=== PATIENT | male | born 1960 | race Caucasian/White ===

== ENCOUNTER 2020-02-18 22:17 | Inpatient (IN) | payer MEDICAID ==
[~2020-02-18] VITALS: Ht 180.3 cm; Wt 98.4 kg
[2020-02-18] MEDS ORDERED: IV NS 1000 ML 1,000 ML IV ONE (22:45)
[2020-02-18 23:04] LABS: BASOPHILS # (AUTO) 0.1 K/uL (0.0-8.0); BASOPHILS % (AUTO) 0.8 % (0.0-2.0); EOSINOPHILS # (AUTO) 0.2 K/uL (0.0-0.7); EOSINOPHILS % (AUTO) 3.8 % (0.0-7.0); HEMATOCRIT 43.9 % (36.7-47.1); LYMPHOCYTES # (AUTO) 1.9 K/uL (20.0-40.0); LYMPHOCYTES % (AUTO) 28.8 % (20.5-51.5); MEAN CORPUSCULAR HGB CONC 34 g/dL (32.5-36.3); MEAN CORPUSCULAR VOLUME 102.5 fL (73.0-96.2); MONOCYTES # (AUTO) 0.7 K/uL (2.0-10.0); MONOCYTES % (AUTO) 10.7 % (0.0-11.0); NEUTROPHILS # (AUTO) 3.6 K/uL (1.8-8.9); NEUTROPHILS % (AUTO) 55.9 % (38.5-71.5); PLATELET COUNT (AUTO) 188 K/uL (152-348); RED BLOOD CELL COUNT(AUTO) 4.29 MIL/uL (4.06-5.63); WHITE BLOOD COUNT (AUTO) 6.4 K/uL (3.6-10.2)
[2020-02-18 23:09] LABS: POTASSIUM 3.6 mmol/L (3.5-5.1)
[2020-02-18 23:16] LABS: ACETAMINOPHEN < 2.0 ug/mL (10-30); BILIRUBIN,DIRECT 0.6 mg/dL (0.0-0.2); BILIRUBIN,TOTAL 1.1 mg/dL (0.2-1.0); TOTAL PROTEIN, SERUM 7.8 g/dL (6.4-8.2)
[2020-02-18 23:30] LABS: ETHANOL 197 MG/DL (0-0)
[2020-02-18] MEDS ORDERED: MAGNESIUM SULFATE/D5W 100 ML IV SCH (23:45)
[2020-02-18] MEDS ORDERED: FOLIC ACID 5 MG/ML VIAL IV ONE ×2 (23:45→23:53)
[2020-02-18] MEDS ORDERED: THIAMINE HCL 200 MG/2 ML VIAL IV ONE (23:45)
[2020-02-18] MEDS ORDERED: IV D5/ 0.9% NACL 1,000 ML IV PRN (23:45)
[2020-02-18] MEDS ORDERED: THIAMINE HCL 200 MG/2 ML VIAL ONE (23:51)
[2020-02-18] MEDS ORDERED: MAGNESIUM SULFATE/D5W 100 ML ONE (23:52)
[2020-02-19] MEDS: THIAMINE HCL INJ 100 MG in IV DEXTROSE 5% 50 ML IV SCH (00:20)
[2020-02-19 00:58] LABS: ABG BASE EXCESS -6.1 mmol/L; ABG HCO3 17.3 mmol/L; ABG PH 7.394 (7.350-7.450); ABG PO2 93.7 mmHg (75.0-100.0); ABG SITE LEFT RADIAL; ABG TOTAL HEMOGLOBIN 14.5 G/dL (13.5-18.0); COHb 2.9 % (0.5-1.5); MetHb 0.1 % (0.0-1.5); O2Hb 93.9 % (94.0-97.0); VENT MODE Room Air
[2020-02-19] MEDS: FOLIC ACID 1 MG in IV DEXTROSE 5% 50 ML IV SCH (01:00)
[2020-02-19] MEDS ORDERED: CHLORDIAZEPOXIDE HCL 25 MG CAPSULE PO ONE (02:00)
[2020-02-19] MEDS ORDERED: ONDANSETRON ODT 4 MG TAB.RAPDIS SL ONE (02:00)
[2020-02-19] MEDS ORDERED: ASPIRIN 81 MG TAB.CHEW PO ONE (02:00)
[2020-02-19] MEDS ORDERED: FAMOTIDINE 20 MG TABLET PO ONE (02:00)
[2020-02-19] MEDS ORDERED: ONDANSETRON ODT 4 MG TAB.RAPDIS ONE (02:06)
[2020-02-19] MEDS ORDERED: CHLORDIAZEPOXIDE HCL 25 MG CAPSULE ONE ×2 (02:06→08:57)
[2020-02-19] MEDS ORDERED: ASPIRIN 81 MG TAB.CHEW ONE ×2 (02:06→08:57)
[2020-02-19] MEDS ORDERED: FAMOTIDINE 20 MG TABLET ONE (02:06)
[2020-02-19] MEDS ORDERED: PIPERACILLIN SODIUM/TAZOBACTAM 3.375 G in IV DEXTROSE 5% 50 ML IV ONE (02:45)
[2020-02-19] MEDS ORDERED: ONDANSETRON 4 MG/2 ML VIAL IV PRN (03:00)
[2020-02-19] MEDS ORDERED: ACETAMINOPHEN 650 MG SUPP.RECT RC PRN (03:00)
[2020-02-19] MEDS ORDERED: Z GUARD REMEDY PASTE 57 GM TUBE TOP PRN (03:00)
[2020-02-19] MEDS ORDERED: CEFTRIAXONE 1 G in IV DEXTROSE 5% 50 ML IV SCH (03:00)
[2020-02-19] MEDS ORDERED: FOLIC ACID 1 MG in IV DEXTROSE 5% 50 ML IV SCH (03:00)
[2020-02-19] MEDS ORDERED: LORAZEPAM 2 MG/1 ML VIAL IV PRN (03:00)
[2020-02-19] MEDS ORDERED: THIAMINE HCL INJ 100 MG in IV DEXTROSE 5% 50 ML IV SCH (03:00)
[2020-02-19 03:55] LABS: THYROID STIMULATING HORMONE 2.949 mIU/mL (0.358-3.740)
[2020-02-19] MEDS ORDERED: PIPERACILLIN/TAZOBACTAM/D5W 50 ML IV ONE (04:17)
[2020-02-19 04:26] LABS: MAGNESIUM 2.2 mg/dL (1.8-2.4); PHOSPHOROUS 2.3 mg/dL (2.5-4.9); POTASSIUM 3.7 mmol/L (3.5-5.1)
[2020-02-19] MEDS ORDERED: LORAZEPAM 2 MG/1 ML VIAL IV ONE ×2 (05:45→07:15)
[2020-02-19] MEDS ORDERED: LORAZEPAM 2 MG/1 ML VIAL ONE ×3 (05:46→16:53)
[2020-02-19 06:26] LABS: ABG BASE EXCESS -1.2 mmol/L; ABG HCO3 22.8 mmol/L; ABG PCO2 35.9 mmHg (35.0-45.0); ABG PO2 69.9 mmHg (75.0-100.0); ABG SITE LEFT RADIAL; ABG TOTAL HEMOGLOBIN 14.7 G/dL (13.5-18.0); COHb 1.2 % (0.5-1.5); MetHb 0.2 % (0.0-1.5); O2Hb 92.1 % (94.0-97.0); VENT MODE room air
[2020-02-19 08:35] LABS: *BILIRUBIN,URIN NEGATIVE (NEGATIVE); *BLOOD, URINE NEGATIVE (NEGATIVE); *CLARITY,URINE CLEAR (CLEAR); *COLOR,URINE YELLOW (YELLOW); *KETONES,URINE 3+ (NEGATIVE); LEUKOCYTE ESTERASE ,URINE NEGATIVE (NEGATIVE); NITRITE, URINE NEGATIVE (NEGATIVE); UGLUCOSE NEGATIVE (NEGATIVE)
[2020-02-19 08:36] LABS: *AMPHETAMINE, URINE NEGATIVE (NEGATIVE); *CANNABINOID, URINE NEGATIVE (NEGATIVE); *COCCAINE, URINE NEGATIVE (NEGATIVE); *OPIATE, URINE NEGATIVE (NEGATIVE); *PHENCYCLIDINE SCREEN,URINE NEGATIVE (NEGATIVE)
[2020-02-19] MEDS ORDERED: CEFTRIAXONE /D5W 50ML IVPB **ER PYXIS IV ONE (08:58)
[2020-02-19] MEDS ORDERED: FAMOTIDINE. 20 MG/2 ML VIAL IV ONE (08:58)
[2020-02-19] MEDS: ASPIRIN 81 MG TAB.CHEW PO SCH (09:07)
[2020-02-19] MEDS: CHLORDIAZEPOXIDE HCL 25 MG CAPSULE PO SCH (09:07)
[2020-02-19] MEDS: FAMOTIDINE. 20 MG/2 ML VIAL IV SCH (09:08)
[2020-02-19] MEDS: CEFTRIAXONE 1 G in IV DEXTROSE 5% 50 ML IV SCH (09:08)
[2020-02-19 09:24] LABS: CREATININE 1.2 mg/dL (0.6-1.3); MAGNESIUM 2.4 mg/dL (1.8-2.4); PHOSPHOROUS 2.1 mg/dL (2.5-4.9); POTASSIUM 3.8 mmol/L (3.5-5.1)
[2020-02-19] MEDS ORDERED: hydrALAZINE HCL 20 MG/1 ML VIAL IV PRN (09:30)
[2020-02-19] MEDS: AMLODIPINE 5 MG TABLET PO SCH (09:34)
[2020-02-19] MEDS ORDERED: AMLODIPINE 5 MG TABLET ONE (09:37)
[2020-02-19] MEDS: POTASSIUM CHLORIDE 20 MEQ in IV D5/ 0.9% NACL 1,000 ML IV PRN ×2 (09:45→19:31)
[2020-02-19 09:52] LABS: BASOPHILS % (AUTO) 0.8 % (0.0-2.0); EOSINOPHILS # (AUTO) 0.3 K/uL (0.0-0.7); EOSINOPHILS % (AUTO) 4.9 % (0.0-7.0); HEMATOCRIT 41.9 % (36.7-47.1); HEMOGLOBIN 14.1 g/dL (12.5-16.3); LYMPHOCYTES # (AUTO) 1.2 K/uL (20.0-40.0); LYMPHOCYTES % (AUTO) 23.9 % (20.5-51.5); MEAN CORPUSCULAR HEMOGLOBIN 34.9 uug (23.8-33.4); MEAN CORPUSCULAR HGB CONC 34 g/dL (32.5-36.3); MEAN CORPUSCULAR VOLUME 103.5 fL (73.0-96.2); MONOCYTES # (AUTO) 0.4 K/uL (2.0-10.0); MONOCYTES % (AUTO) 8.2 % (0.0-11.0); NEUTROPHILS # (AUTO) 3.2 K/uL (1.8-8.9); NEUTROPHILS % (AUTO) 62.2 % (38.5-71.5); PLATELET COUNT (AUTO) 173 K/uL (152-348); RED BLOOD CELL COUNT(AUTO) 4.05 MIL/uL (4.06-5.63); WHITE BLOOD COUNT (AUTO) 5.1 K/uL (3.6-10.2)
[2020-02-19 11:03] LABS: CREATININE 1.1 mg/dL (0.6-1.3); POTASSIUM 3.9 mmol/L (3.5-5.1)
[2020-02-19 11:20] LABS: BILIRUBIN,TOTAL 1.3 mg/dL (0.2-1.0); MAGNESIUM 2.4 mg/dL (1.8-2.4); PHOSPHOROUS 2.2 mg/dL (2.5-4.9); TOTAL PROTEIN, SERUM 7.1 g/dL (6.4-8.2)
[2020-02-19] MEDS ORDERED: LABETALOL HCL 100 MG/20 ML VIAL IV PRN ×2 (12:15→12:17)
[2020-02-19 14:50] LABS: BACTERIA,URINE NONE SEEN /HPF (NONE SEEN); RBC,URINE 0-3 /HPF (0-3); SQUAMOUS EPITHELIAL CELL,UR FEW /HPF (NONE SEEN); WBC,URINE 0-3 /HPF (0-3)
[2020-02-19] MEDS ORDERED: LABETALOL HCL 100 MG/20 ML VIAL ONE (15:01)
[2020-02-19 15:03] LABS: MAGNESIUM 2.2 mg/dL (1.8-2.4); POTASSIUM 3.8 mmol/L (3.5-5.1)
[2020-02-19] MEDS ORDERED: SODIUM PHOSPHATE MM 15 MMOL in IV NORMAL SALINE 250 ML IV ONE (16:30)
[2020-02-19 17:37] LABS: THYROID STIMULATING HORMONE 2.186 mIU/mL (0.358-3.740)
[2020-02-19 18:00] VITALS: BP 144/89
[2020-02-19 20:03] VITALS: BP 136/88
[2020-02-19] MEDS ORDERED: CYANOCOBALAMIN 1000 MCG/ML VIAL ONE (22:56)
[2020-02-19] MEDS ORDERED: FOLIC ACID 5 MG/ML VIAL IV ONE (23:25)
[2020-02-19] MEDS ORDERED: THIAMINE HCL 200 MG/2 ML VIAL ONE (23:25)
[2020-02-20 00:03] VITALS: BP 150/98
[2020-02-20] MEDS: THIAMINE HCL INJ 100 MG in IV DEXTROSE 5% 50 ML IV SCH (01:00)
[2020-02-20] MEDS: FOLIC ACID 1 MG in IV DEXTROSE 5% 50 ML IV SCH (02:00)
[2020-02-20 04:03] VITALS: BP 138/84
[2020-02-20 07:45] LABS: PHOSPHOROUS 3.1 mg/dL (2.5-4.9); POTASSIUM 3.6 mmol/L (3.5-5.1)
[2020-02-20 08:53] LABS: BASOPHILS % (AUTO) 0.8 % (0.0-2.0); EOSINOPHILS # (AUTO) 0.3 K/uL (0.0-0.7); EOSINOPHILS % (AUTO) 5.1 % (0.0-7.0); HEMATOCRIT 38.3 % (36.7-47.1); LYMPHOCYTES # (AUTO) 1.4 K/uL (20.0-40.0); LYMPHOCYTES % (AUTO) 26.9 % (20.5-51.5); MEAN CORPUSCULAR HEMOGLOBIN 35.3 uug (23.8-33.4); MEAN CORPUSCULAR HGB CONC 34 g/dL (32.5-36.3); MEAN CORPUSCULAR VOLUME 104.1 fL (73.0-96.2); MONOCYTES # (AUTO) 0.4 K/uL (2.0-10.0); MONOCYTES % (AUTO) 8.1 % (0.0-11.0); NEUTROPHILS % (AUTO) 59.1 % (38.5-71.5); PLATELET COUNT (AUTO) 144 K/uL (152-348); RED BLOOD CELL COUNT(AUTO) 3.68 MIL/uL (4.06-5.63); WHITE BLOOD COUNT (AUTO) 5.1 K/uL (3.6-10.2)
[2020-02-20] MEDS ORDERED: NICOTINE 14 MG/24HR PATCH TD SCH (09:00)
[2020-02-20] MEDS: ASPIRIN 81 MG TAB.CHEW PO SCH (09:11)
[2020-02-20] MEDS: CHLORDIAZEPOXIDE HCL 25 MG CAPSULE PO SCH (09:12)
[2020-02-20] MEDS: FAMOTIDINE. 20 MG/2 ML VIAL IV SCH (09:12)
[2020-02-20] MEDS: AMLODIPINE 5 MG TABLET PO SCH (09:28)
[2020-02-20] MEDS: POTASSIUM CHLORIDE 20 MEQ in IV D5/ 0.9% NACL 1,000 ML IV PRN (09:40)
[2020-02-20] MEDS: CEFTRIAXONE 1 G in IV DEXTROSE 5% 50 ML IV SCH (10:16)
[2020-02-20 12:00] VITALS: BP 140/92
[2020-02-20] MEDS ORDERED: AMLO10TA59 PO (15:54)
[2020-02-20 16:00] VITALS: BP 155/87
== END 2020-02-20 18:43 | disposition home or self-care (01) | DRG 199 ==
LOC: ER 22:22 → TELE3 02-19 18:14 → MEDSURG3 02-20 07:55
PROVIDERS: ADMIT Student in an Organized Health Care Education/Training Program; ATTEND Nurse Practitioner Acute Care
DX: I16.0 Hypertensive urgency (principal); F10.139 Alcohol abuse with withdrawal, unspecified; E87.2 Acidosis; Y90.6 Blood alcohol level of 120-199 mg/100 ml; R74.01 Elevation of levels of liver transaminase levels; K52.9 Noninfective gastroenteritis and colitis, unspecified; K76.0 Fatty (change of) liver, not elsewhere classified; N28.1 Cyst of kidney, acquired; K42.9 Umbilical hernia without obstruction or gangrene; K40.20 Bilateral inguinal hernia, without obstruction or gangrene, not specified as recurrent; F17.210 Nicotine dependence, cigarettes, uncomplicated; Z71.6 Tobacco abuse counseling
CPT/HCPCS: 36415; 36600; 70030-TC; 71045; 83605; 83690; 83735; 84100; 84443; 85025; 85730; 87040; 93005; 93307; A4663; G0378; G0480; J0696; J2060; J2543; J3411; J3420; J3475; J3480; J3490; J7030; J7042; J7050; J7060; Q0162

== ENCOUNTER 2020-07-29 13:07 | Inpatient (IN) | payer MEDICAID ==
[~2020-07-29] VITALS: Ht 180.3 cm; Wt 90.7 kg
[~2020-07-29 13:07] MED LIST: AMLO10TA59 PO
[2020-07-29] MEDS ORDERED: PANTOPRAZOLE SODIUM 40 MG VIAL IV ONE (13:30)
[2020-07-29 14:22] LABS: BASOPHILS # (AUTO) 0.1 K/uL (0.0-8.0); BASOPHILS % (AUTO) 0.9 % (0.0-2.0); EOSINOPHILS # (AUTO) 0.1 K/uL (0.0-0.7); EOSINOPHILS % (AUTO) 1.8 % (0.0-7.0); HEMATOCRIT 41.4 % (36.7-47.1); HEMOGLOBIN 14.1 g/dL (12.5-16.3); LYMPHOCYTES # (AUTO) 1.6 K/uL (20.0-40.0); LYMPHOCYTES % (AUTO) 23.9 % (20.5-51.5); MEAN CORPUSCULAR HEMOGLOBIN 34.6 uug (23.8-33.4); MEAN CORPUSCULAR HGB CONC 34 g/dL (32.5-36.3); MEAN CORPUSCULAR VOLUME 101.8 fL (73.0-96.2); MONOCYTES # (AUTO) 0.6 K/uL (2.0-10.0); MONOCYTES % (AUTO) 9.6 % (0.0-11.0); NEUTROPHILS # (AUTO) 4.2 K/uL (1.8-8.9); NEUTROPHILS % (AUTO) 63.8 % (38.5-71.5); PLATELET COUNT (AUTO) 205 K/uL (152-348); RED BLOOD CELL COUNT(AUTO) 4.07 MIL/uL (4.06-5.63); WHITE BLOOD COUNT (AUTO) 6.5 K/uL (3.6-10.2)
[2020-07-29] MEDS ORDERED: PANTOPRAZOLE SODIUM 40 MG VIAL ONE (14:28)
[2020-07-29 14:31] LABS: CREATININE 0.9 mg/dL (0.6-1.3); POTASSIUM 3.8 mmol/L (3.5-5.1)
[2020-07-29 14:37] LABS: BILIRUBIN,DIRECT 0.9 mg/dL (0.0-0.2); BILIRUBIN,TOTAL 1.5 mg/dL (0.2-1.0); TOTAL PROTEIN, SERUM 7.5 g/dL (6.4-8.2)
[2020-07-29] MEDS ORDERED: IV NS 1000 ML 1,000 ML IV ONE (16:15)
[2020-07-29] MEDS ORDERED: LORAZEPAM 2 MG/1 ML VIAL IV ONE (17:30)
[2020-07-29] MEDS ORDERED: ONDANSETRON 4 MG/2 ML VIAL IV ONE (17:30)
[2020-07-29] MEDS ORDERED: ONDANSETRON 4 MG/2 ML VIAL ONE (17:48)
[2020-07-29] MEDS ORDERED: LORAZEPAM 2 MG/1 ML VIAL ONE (17:50)
[2020-07-29 22:09] VITALS: BP 150/95
[2020-07-29] MEDS ORDERED: ONDANSETRON 4 MG/2 ML VIAL IV PRN (22:30)
[2020-07-29] MEDS ORDERED: ACETAMINOPHEN 325 MG TABLET PO PRN (22:30)
[2020-07-29] MEDS ORDERED: MAG HYDROX/AL HYDROX/SIMETH 30 ML LIQUID UDC PO PRN (22:30)
[2020-07-29] MEDS ORDERED: MORPHINE SULFATE 2 MG/1 ML DISP.SYRIN IV PRN (22:30)
[2020-07-29] MEDS ORDERED: ZOLPIDEM 5 MG TABLET PO PRN (22:30)
[2020-07-29] MEDS: LORAZEPAM 2 MG/1 ML VIAL IV PRN (23:09)
[2020-07-29] MEDS: ENOXAPARIN SODIUM 40 MG/0.4 ML DISP.SYRIN SQ SCH (23:53)
[2020-07-30 00:06] VITALS: BP 142/72
[2020-07-30 04:12] VITALS: BP 148/98
[2020-07-30] MEDS: PANTOPRAZOLE SODIUM 40 MG TABLET.DR PO SCH (06:15)
[2020-07-30 06:39] LABS: BASOPHILS % (AUTO) 0.5 % (0.0-2.0); EOSINOPHILS # (AUTO) 0.1 K/uL (0.0-0.7); EOSINOPHILS % (AUTO) 2.1 % (0.0-7.0); HEMATOCRIT 40.1 % (36.7-47.1); HEMOGLOBIN 13.5 g/dL (12.5-16.3); LYMPHOCYTES # (AUTO) 1.2 K/uL (20.0-40.0); LYMPHOCYTES % (AUTO) 19.8 % (20.5-51.5); MEAN CORPUSCULAR HEMOGLOBIN 34.3 uug (23.8-33.4); MEAN CORPUSCULAR HGB CONC 34 g/dL (32.5-36.3); MEAN CORPUSCULAR VOLUME 101.9 fL (73.0-96.2); MONOCYTES # (AUTO) 0.6 K/uL (2.0-10.0); MONOCYTES % (AUTO) 9.5 % (0.0-11.0); NEUTROPHILS # (AUTO) 4.2 K/uL (1.8-8.9); NEUTROPHILS % (AUTO) 68.1 % (38.5-71.5); PLATELET COUNT (AUTO) 173 K/uL (152-348); RED BLOOD CELL COUNT(AUTO) 3.94 MIL/uL (4.06-5.63); WHITE BLOOD COUNT (AUTO) 6.2 K/uL (3.6-10.2)
[2020-07-30 06:59] LABS: BILIRUBIN,TOTAL 1.8 mg/dL (0.2-1.0); MAGNESIUM 2.2 mg/dL (1.8-2.4); PHOSPHOROUS 3.4 mg/dL (2.5-4.9); TOTAL PROTEIN, SERUM 6.6 g/dL (6.4-8.2)
[2020-07-30 07:08] LABS: THYROID STIMULATING HORMONE 2.666 mIU/mL (0.358-3.740)
[2020-07-30 07:50] VITALS: BP 165/102
[2020-07-30] MEDS: FOLIC ACID 1 MG TABLET PO SCH (08:08)
[2020-07-30] MEDS: AMLODIPINE 10 MG TABLET PO SCH (08:09)
[2020-07-30] MEDS: THIAMINE HCL 100 MG TABLET PO SCH (08:10)
[2020-07-30] MEDS: LORAZEPAM 2 MG/1 ML VIAL IV PRN ×3 (08:10→20:23)
[2020-07-30] MEDS: MULTIVITAMINS,THERAPEUTIC TABLET PO SCH (08:10)
[2020-07-30] MEDS: ASPIRIN EC 81 MG TABLET.DR PO SCH (08:12)
[2020-07-30 11:30] VITALS: BP 145/84
[2020-07-30 16:00] VITALS: BP 141/88
[2020-07-30 20:00] VITALS: BP 154/92
[2020-07-30] MEDS: DOCUSATE SODIUM 100 MG CAPSULE PO SCH (20:23)
[2020-07-30] MEDS: ENOXAPARIN SODIUM 40 MG/0.4 ML DISP.SYRIN SQ SCH (20:28)
[2020-07-30] MEDS ORDERED: DOCUSATE SODIUM 250 MG CAPSULE PO SCH (21:00)
[2020-07-31] VITALS (10 sets, daily range): BP systolic 137–162; BP diastolic 82–101
[2020-07-31] MEDS: PANTOPRAZOLE SODIUM 40 MG TABLET.DR PO SCH (06:02)
[2020-07-31] MEDS: LORAZEPAM 2 MG/1 ML VIAL IV PRN ×3 (06:11→21:37)
[2020-07-31 06:39] LABS: BILIRUBIN,TOTAL 1.8 mg/dL (0.2-1.0); CREATININE 0.9 mg/dL (0.6-1.3); POTASSIUM 3.5 mmol/L (3.5-5.1); TOTAL PROTEIN, SERUM 6.6 g/dL (6.4-8.2)
[2020-07-31] MEDS: ASPIRIN EC 81 MG TABLET.DR PO SCH (09:17)
[2020-07-31] MEDS: THIAMINE HCL 100 MG TABLET PO SCH (09:17)
[2020-07-31] MEDS: MULTIVITAMINS,THERAPEUTIC TABLET PO SCH (09:17)
[2020-07-31] MEDS: FOLIC ACID 1 MG TABLET PO SCH (09:17)
[2020-07-31] MEDS: AMLODIPINE 10 MG TABLET PO SCH (09:22)
[2020-07-31] MEDS: DOCUSATE SODIUM 100 MG CAPSULE PO SCH (20:47)
[2020-07-31] MEDS: ENOXAPARIN SODIUM 40 MG/0.4 ML DISP.SYRIN SQ SCH (20:48)
[2020-08-01 04:15] VITALS: BP 161/102
[2020-08-01] MEDS: PANTOPRAZOLE SODIUM 40 MG TABLET.DR PO SCH (06:01)
[2020-08-01 06:08] VITALS: BP 142/94
[2020-08-01 07:11] LABS: BILIRUBIN,DIRECT 0.8 mg/dL (0.0-0.2); BILIRUBIN,TOTAL 1.3 mg/dL (0.2-1.0); TOTAL PROTEIN, SERUM 6.3 g/dL (6.4-8.2)
[2020-08-01] MEDS: THIAMINE HCL 100 MG TABLET PO SCH (10:04)
[2020-08-01] MEDS: FOLIC ACID 1 MG TABLET PO SCH (10:05)
[2020-08-01] MEDS: AMLODIPINE 10 MG TABLET PO SCH (10:09)
[2020-08-01] MEDS: MULTIVITAMINS,THERAPEUTIC TABLET PO SCH (10:09)
[2020-08-01] MEDS: ASPIRIN EC 81 MG TABLET.DR PO SCH (10:09)
[2020-08-01] MEDS: LORAZEPAM 2 MG/1 ML VIAL IV PRN (10:27)
[2020-08-01 11:50] VITALS: BP 129/76
[2020-08-01 16:01] VITALS: BP 152/77
== END 2020-08-01 17:20 | disposition home or self-care (01) | DRG 241 ==
LOC: ER 13:07 → TELE3 21:36 → MEDSURG3 07-31 05:56
PROVIDERS: ADMIT Internal Medicine; ATTEND Internal Medicine
DX: K29.70 Gastritis, unspecified, without bleeding (principal); K70.10 Alcoholic hepatitis without ascites; K76.0 Fatty (change of) liver, not elsewhere classified; E87.1 Hypo-osmolality and hyponatremia; K20.90 Esophagitis, unspecified without bleeding; N28.1 Cyst of kidney, acquired; F10.229 Alcohol dependence with intoxication, unspecified; F10.239 Alcohol dependence with withdrawal, unspecified; Y90.7 Blood alcohol level of 200-239 mg/100 ml; R94.31 Abnormal electrocardiogram [ECG] [EKG]; K57.30 Diverticulosis of large intestine without perforation or abscess without bleeding; K80.20 Calculus of gallbladder without cholecystitis without obstruction; J98.11 Atelectasis; K42.9 Umbilical hernia without obstruction or gangrene; Z20.822 Contact with and (suspected) exposure to COVID-19; F17.210 Nicotine dependence, cigarettes, uncomplicated; K40.20 Bilateral inguinal hernia, without obstruction or gangrene, not specified as recurrent; Z82.49 Family history of ischemic heart disease and other diseases of the circulatory system; I10 Essential (primary) hypertension; E66.9 Obesity, unspecified; Z68.27 Body mass index [BMI] 27.0-27.9, adult; K57.90 Diverticulosis of intestine, part unspecified, without perforation or abscess without bleeding; R94.8 Abnormal results of function studies of other organs and systems
CPT/HCPCS: 36415; 70030-TC; 71045; 83690; 83735; 84100; 84443; 85025; 85730; 93005; 93307; A4663; C9113; G0378; G0480; J1650; J2060; J2405; J7030

== ENCOUNTER 2020-08-12 10:00 | Emergency (ER) | payer MEDICAID ==
[~2020-08-12] VITALS: Ht 180.3 cm; Wt 95.3 kg
--- NOTE | 2020-08-12 10:25 | NUR ---
Dr Toney at the bedside for MSE.
[2020-08-12] MEDS ORDERED: ONDANSETRON 4 MG/2 ML VIAL IV ONE (10:30)
[2020-08-12] MEDS ORDERED: HYDROMORPHONE 1 MG/1 ML DISP.SYRIN IV ONE ×2 (10:30→15:45)
[2020-08-12] MEDS ORDERED: IV NORMAL SALINE 1000 ML BAG IV ONE (10:30)
[2020-08-12] MEDS ORDERED: NITROGLYCERIN OINT 1 GM PACKET TP ONE ×2 (10:45→11:02)
[2020-08-12 10:58] LABS: BASOPHILS # (AUTO) 0.1 K/uL (0.0-8.0); BASOPHILS % (AUTO) 0.6 % (0.0-2.0); EOSINOPHILS % (AUTO) 0.5 % (0.0-7.0); HEMATOCRIT 38.6 % (36.7-47.1); HEMOGLOBIN 13.3 g/dL (12.5-16.3); LYMPHOCYTES # (AUTO) 0.6 K/uL (20.0-40.0); LYMPHOCYTES % (AUTO) 5.5 % (20.5-51.5); MEAN CORPUSCULAR HEMOGLOBIN 34.8 uug (23.8-33.4); MEAN CORPUSCULAR HGB CONC 34 g/dL (32.5-36.3); MONOCYTES # (AUTO) 0.6 K/uL (2.0-10.0); MONOCYTES % (AUTO) 6.4 % (0.0-11.0); NEUTROPHILS # (AUTO) 8.8 K/uL (1.8-8.9); PLATELET COUNT (AUTO) 305 K/uL (152-348); RED BLOOD CELL COUNT(AUTO) 3.82 MIL/uL (4.06-5.63); WHITE BLOOD COUNT (AUTO) 10.1 K/uL (3.6-10.2)
[2020-08-12] MEDS ORDERED: ONDANSETRON 4 MG/2 ML VIAL ONE (11:02)
[2020-08-12] MEDS ORDERED: SWABABLE VALVE TRANSFER SET EA MC ONE (11:02)
[2020-08-12] MEDS ORDERED: HYDROMORPHONE 1 MG/1 ML DISP.SYRIN ONE ×2 (11:02→15:38)
[2020-08-12] MEDS ORDERED: IOHEXOL 350 100 ML INFUS..BTL ONE (11:03)
[2020-08-12] MEDS ORDERED: IV NORMAL SALINE 250 ML IV ONE (11:03)
[2020-08-12 11:08] VITALS: BP 129/79
[2020-08-12 11:10] LABS: ETHANOL < 3 MG/DL (0-0)
[2020-08-12 11:11] LABS: BILIRUBIN,DIRECT 0.4 mg/dL (0.0-0.2); BILIRUBIN,TOTAL 0.7 mg/dL (0.2-1.0); POTASSIUM 3.7 mmol/L (3.5-5.1); TOTAL PROTEIN, SERUM 6.8 g/dL (6.4-8.2)
[2020-08-12 11:21] LABS: MAGNESIUM 1.8 mg/dL (1.8-2.4); PHOSPHOROUS 2.4 mg/dL (2.5-4.9)
--- NOTE | 2020-08-12 11:25 | NUR ---
Pt out of Er for CT.
[2020-08-12] MEDS ORDERED: NEUTRA PHOS PACKET PO ONE (11:30)
--- NOTE | 2020-08-12 11:57 | NUR ---
Pt back from CT. Pt denies pain, but c/o SOB on exertion. RA o2 sat 98%.
[2020-08-12 13:32] LABS: *BILIRUBIN,URIN NEGATIVE (NEGATIVE); *BLOOD, URINE NEGATIVE (NEGATIVE); *CLARITY,URINE CLEAR (CLEAR); *COLOR,URINE YELLOW (YELLOW); *KETONES,URINE NEGATIVE (NEGATIVE); LEUKOCYTE ESTERASE ,URINE NEGATIVE (NEGATIVE); NITRITE, URINE NEGATIVE (NEGATIVE); PH,URINE 6.5 (5.0-8.0); UGLUCOSE NEGATIVE (NEGATIVE)
--- NOTE | 2020-08-12 13:38 | NUR ---
Patient is resting comfortably in bed with eyes closed, NAD noted.
[2020-08-12 13:46] LABS: *AMPHETAMINE, URINE NEGATIVE (NEGATIVE); *CANNABINOID, URINE POSITIVE (NEGATIVE); *COCCAINE, URINE NEGATIVE (NEGATIVE); *OPIATE, URINE POSITIVE (NEGATIVE); *PHENCYCLIDINE SCREEN,URINE NEGATIVE (NEGATIVE)
--- NOTE | 2020-08-12 14:28 | NUR ---
MARISOL PEGUERO spoke to Dr Nieto @[facility].
--- NOTE | 2020-08-12 15:01 | NUR ---
Spoke to [facility] paralegal supervisor @ [facility], pt will be going to room 306A, admitting Md is Dr Jose Choi. Placed a call to [facility], no ACLS available. [facility] ambulance has ACLS transfer earliest availablity at 1800.
--- NOTE | 2020-08-12 15:10 | NUR ---
Pt made aware of transfer and agreed, Pt signed tranfer paperwork.
--- NOTE | 2020-08-12 17:21 | NUR ---
Report to LUCINA Caballero at [place].
--- NOTE | 2020-08-12 18:53 | NUR ---
Placed a call to [facility] regarding their delay, notified the test director will be here in 30 more min.
--- NOTE | 2020-08-12 19:14 | NUR ---
[facility]soff report given to Lady Crane.
--- NOTE | 2020-08-12 19:17 | NUR ---
Assumed care of patient from day shift LUCINA Newsome.
--- NOTE | 2020-08-12 19:54 | NUR ---
[facility] ambulance arrived to picking tech patient via gurney accompanied by 2 paramedics to transfer to [facility]. Report given to maintenance machine repairer and states understanding.
--- NOTE | 2020-08-12 20:15 | NUR ---
Patient Tranfers to outside Facility Physician: Dr Choi Location: [facility], room 306A
== END 2020-08-12 20:15 | disposition short-term general hospital (02) ==
LOC: ER 10:00
DX: R07.2 Precordial pain (principal); E87.1 Hypo-osmolality and hyponatremia; R10.9 Unspecified abdominal pain; K70.10 Alcoholic hepatitis without ascites; Y90.0 Blood alcohol level of less than 20 mg/100 ml; E87.2 Acidosis; F17.290 Nicotine dependence, other tobacco product, uncomplicated; F10.21 Alcohol dependence, in remission; R06.02 Shortness of breath; Z20.822 Contact with and (suspected) exposure to COVID-19; E83.39 Other disorders of phosphorus metabolism; I71.2 Thoracic aortic aneurysm, without rupture; N28.1 Cyst of kidney, acquired; K76.0 Fatty (change of) liver, not elsewhere classified
CPT/HCPCS: 36415; 71045; 71260; 74177; 80048; 80076; 80307; 80320; 81003; 83690; 83735; 83880; 84100; 84484; 85025; 87426; 93005; 96361; 96374; 96375; 96376; 99291; 99406; J1170 ×2; J2405; Q9967; 70030-TC; A4663; G0480; J7050